=== PATIENT | male | born 1995 | race African-American/Black ===

== ENCOUNTER 2017-02-05 23:12 | Emergency (ER) | payer OTHER ==
[~2017-02-05] VITALS: Ht 175.3 cm; Wt 68.0 kg
[2017-02-06 00:54] VITALS: BP 119/64
== END 2017-02-06 00:55 | disposition home or self-care (01) ==
LOC: ER 23:12
DX: S81.011A Laceration without foreign body, right knee, initial encounter (principal); X58.XXXA Exposure to other specified factors, initial encounter; Y93.89 Activity, other specified; Y92.89 Other specified places as the place of occurrence of the external cause; Y99.9 Unspecified external cause status